=== PATIENT | female | born 1990 | race Caucasian/White ===

== ENCOUNTER 2018-03-18 15:16 | Emergency (ER) | payer SELFPAY ==
[~2018-03-18 15:16] MED LIST: DOCU1CAP39 PO; FERR325T PO; IBUP600 PO; OXYC1SOL5 PO; PRENCAP6 PO; SIME80 PO
[2018-03-18 15:22] VITALS: BP 116/61; PULSE 91; RESP 18; TEMP 97.7; O2SAT 98
[2018-03-18] MEDS ORDERED: PRENTAB7 PO (15:36)
--- NOTE | 2018-03-18 15:38 | PD ---
HPI Chief Complaint: Musculoskeletal Complaint Time Seen by Provider: 15:34 Travel History International Travel<30 days: No Contact w/Intl Traveler<30days: No Traveled to known affect area: No History of Present Illness HPI This young lady was in the garden, HOEING the garden when the patient felt a sudden sharp pain to the right inguinal region. Rates it 8 out of 10 worse with activity movement or pulling activity .m patient states that she is 13 weeks and has an BILLET SAWYER that she follows up with. Patient states that she does not have any associated factors such as fever, rash, chest pain, neck pain, back pain, flank pain, headache, vaginal bleeding, vaginal spotting, vaginal discharge, urinary frequency, urinary urgency, dysuria or actual abdominal pain. No nondrug allergies Patient denies any previous medical and surgical history with exception of a C- section PFSH Past Medical History Cancer: No Cardiovascular Problems: No Diabetes: No Diminished Hearing: No Endocrine: No Genitourinary: No Hepatitis: No Hiatal Hernia: No Immune Disorder: No Musculoskeletal: No Neurologic: No Psychiatric: No Reproductive: No Respiratory: No Immunizations Current: No Thyroid Disease: No ?: LMP: 12/11/2017 : 3 Para: 1 Miscarriage: 1 : 1 Dilation and Curettage (D&C): Yes Past Surgical History Abdominal Surgery: No AICD: No Cardiac Surgery: No Ear Surgery: No Endocrine Surgery: No Eye Surgery: No Genitourinary Surgery: No Gynecologic Surgery: Yes (, D&C, LEEP) Joint Replacement: No Oral Surgery: No Pacemaker: No Thoracic Surgery: No Other Surgery: Yes Social History Alcohol Use: No Tobacco Use: No Substance Use: No Allergies-Medications (Allergen,Severity, Reaction): Coded Allergies: *MDRO Multi-Drug Resistant Organism (Unverified Adverse Reaction, Unknown , 03/18/18) MRSA (surveillance culture) positive - 03/29/2015 MRSA PCR screen (nares) POSITIVE - 06/05/16 Reported Meds & Prescriptions Reported Meds & Active Scripts Active Reported Vitamins Tablet (Pnv No.95/Ferrous Fum/Folic AC) 28 Mg Iron-800 Mcg Tablet 1 Tab PO DAILY Review of Systems Except as stated in HPI: all other systems reviewed are Neg General / Constitutional: No: Fever Eyes: No: Visual changes HENT: No: Headaches Cardiovascular: No: Chest Pain or Discomfort Respiratory: No: Shortness of Breath Gastrointestinal: No: Abdominal Pain Genitourinary: No: Dysuria Musculoskeletal: Positive: Limited ROM (Right inguinal region), Pain Skin: No Rash Neurologic: No: Weakness Psychiatric: No: Depression Endocrine: No: Polydipsia Hematologic/Lymphatic: No: Easy Bruising Physical Exam Narrative GENERAL: SKIN: Warm and dry. HEAD: Atraumatic. Normocephalic. EYES: Pupils equal and round. No scleral icterus. No injection or drainage. ENT: No nasal bleeding or discharge. Mucous membranes pink and moist. NECK: Trachea midline. No JVD. CARDIOVASCULAR: Regular rate and rhythm. RESPIRATORY: No accessory muscle use. Clear to auscultation. Breath sounds equal bilaterally. GASTROINTESTINAL: Abdomen soft, non-tender, nondistended. Hepatic and splenic margins not palpable. AVELINO Torres at the bedside during examination MUSCULOSKELETAL: Extremities without clubbing, cyanosis, or edema. No obvious deformities. Patient had tenderness to palpation over the right femoral region. However the patient did not have any bulges during increased intra- abdominal pressure. NEUROLOGICAL: Awake and alert. No obvious cranial nerve deficits. Motor grossly within normal limits. Five out of 5 muscle strength in the arms and legs. Normal speech. PSYCHIATRIC: Appropriate mood and affect; insight and judgment normal. Data Data Last Documented VS Vital Signs Date Time Temp Pulse Resp B/P (MAP) Pulse Ox O2 Delivery O2 Flow Rate FiO2 03/18/18 15:22 97.7 91 18 116/61 (79) 98 Orders Orders Urinalysis - C+S If Indicated (03/18/18 15:38) Ed Discharge Order (03/18/18 16:07) Labs Laboratory Tests Test 03/18/18 15:40 Urine Color YELLOW Urine Turbidity CLEAR Urine pH 6.0 Urine Specific [place] 1.010 Urine Protein NEG mg/dL Urine Glucose (UA) NEG mg/dL Urine Ketones NEG mg/dL Urine Occult Blood NEG Urine Nitrite NEG Urine Bilirubin NEG Urine Urobilinogen 0.2 MG/DL Urine Leukocyte Esterase NEG Urine RBC 0-2 /hpf Urine WBC 0-2 /hpf Urine Squamous Epithelial Cells 0-5 /hpf Urine Bacteria NONE /hpf Microscopic Urinalysis Comment CULT NOT INDICATED MDM Medical Decision Making Medical Screen Exam Complete: Yes Emergency Medical Condition: Yes Medical Record Reviewed: Yes Differential Diagnosis Direct hernia versus indirect hernia versus inguinal hernia versus femoral hernia versus inguinal strain versus femoral strain Narrative Course Upon clinical evaluation the patient does not have any evidence of any inguinal or indirect or direct hernia. However she is tender over the femoral triangle region but without any bulging. Additionally the patient had a UA which was negative for any sterile pyuria, or UTI. Diagnosis Primary Impression: Right femoral strain without hernia Patient Instructions: General Instructions, Muscle Strain (ED) Disposition: 01 DISCHARGE HOME Condition: Stable Karan Shahid MD March 18, 2018 15:38
[2018-03-18 15:45] LABS: BILIRUBIN, URINE NEG (NEG); BLOOD, URINE NEG (NEG); GLUCOSE,URINE NEG (NEG); KETONE, URINE NEG (NEG); NITRITE,URINE NEG (NEG); URINE COLOR YELLOW (YELLW/STRAW); URINE LEUKOCYTE ESTERASE NEG (NEG)
[2018-03-18 15:54] LABS: RBC, URINE 0-2 /hpf (0-3); SQUAMOUS EPITHELIAL CELL URINE 0-5 /hpf (0-5); WBC, URINE 0-2 /hpf (0-5)
== END 2018-03-18 16:20 | disposition home or self-care (01) ==
LOC: PHED 15:16
DX: S39.011A Strain of muscle, fascia and tendon of abdomen, initial encounter (principal); Z3A.13 13 weeks gestation of pregnancy; Y93.H2 Activity, gardening and landscaping
CPT/HCPCS: 81001; 99283

== ENCOUNTER 2018-08-23 16:17 | Inpatient (IN) ==
--- NOTE | 2018-08-23 16:51 | ED ---
History of Present Illness Primary Care Physician: NOT REQUIRED Dr. Luong Scrap Iron Loader History of Present Illness: 27 y/o F, at 36wk3d presents with LOF x 2 hours. Clear fluid. Denies any cxns. Denies VB. +FM obhx: x 1 with 4th degree lac (2015) c/s x 1 (2016) SAB x 1 w/ D&C medhx: LEEP 2012 surghx: above meds: none all: none Review of Systems All other systems reviewed negative except as stated in HPI PMFSH - Travel History History of Recent Travel: No Medications and Allergies Allergies Allergy/AdvReac Type Severity Reaction Status Date / Time *MDRO Multi-Drug Resistant AdvReac Unknown Uncoded 03/18/18 15:35 Organism Home Medications Medication Instructions Recorded Confirmed Type No Known Home Medications 08/10/18 08/10/18 History Exam Narrative: GENERAL: Well-nourished, well-developed patient. SKIN: Warm and dry. HEAD: Normocephalic and atraumatic. EYES: No scleral icterus. No injection or drainage. ENT: No nasal drainage noted. Mucous membranes pink. Airway patent. NECK: Supple, trachea midline. No JVD. CARDIOVASCULAR: Regular rate and rhythm without murmurs, gallops, or rubs. RESPIRATORY: Breath sounds equal bilaterally. No accessory muscle use. ABDOMEN/GI: Abdomen soft, non-tender, bowel sounds present, no rebound, no guarding Gravid to 37 weeks size Fundal Height: 37 GENITOURINARY: External Genitalia: intact and normal in appearance FHT's: EFM baseline 30, +accels, no decels irregular cxns on toco EXTREMITIES: No cyanosis or edema. BACK: Nontender without obvious deformity. No CVA tenderness. NEUROLOGICAL: Awake and alert. Motor and sensory grossly within normal limits. Five out of 5 muscle strength in all muscle groups. Normal speech. Assessment and Plan - Diagnosis (1) 36 weeks gestation of Code(s): Z3A.36 - 36 weeks gestation of Status: Acute (2) Previous delivery affecting Code(s): O34.219 - Maternal care for unspecified type scar from previous delivery Status: Acute Plan: 27 y/o F, [id number], scheduled for repeat , presents with + SROM. - Amniosure positive, dilated at 3cm/80/-1 - labs reviewed, WNL - Ancef 2g pre-op - , Scrap Iron Loader aware and on way for repeat c/s - pre-op orders in Discharge Plan - Discharge Disposition Patient Disposition: 30 Still Patient - Physicians Team ED Provider: Meseret Wolfe Primary Care Provider: NOT REQUIRED,
[2018-08-23] MEDS ORDERED: ceFAZolin 2 GM Premix Inj 2 GM/50 ML PIGGYBACK IV.SIG PRN (17:01)
--- NOTE | 2018-08-23 17:05 | P.HPOB ---
History of Present Illness Primary Care Physician: NOT REQUIRED Dr. Luong Mold Changer History of Present Illness: 27 y/o F, at 36wk3d presents with LOF x 2 hours. Clear fluid. Denies any cxns. Denies VB. +FM obhx: x 1 with 4th degree lac (2015) c/s x 1 (2016) SAB x 1 w/ D&C medhx: LEEP 2012 surghx: above meds: none all: none Review of Systems All other systems reviewed negative except as stated in HPI PMFSH - Travel History History of Recent Travel: No Medications and Allergies Allergies Allergy/AdvReac Type Severity Reaction Status Date / Time *MDRO Multi-Drug Resistant AdvReac Unknown Uncoded 03/18/18 15:35 Organism Home Medications Medication Instructions Recorded Confirmed Type No Known Home Medications 08/10/18 08/10/18 History Exam Narrative: GENERAL: Well-nourished, well-developed patient. SKIN: Warm and dry. HEAD: Normocephalic and atraumatic. EYES: No scleral icterus. No injection or drainage. ENT: No nasal drainage noted. Mucous membranes pink. Airway patent. NECK: Supple, trachea midline. No JVD. CARDIOVASCULAR: Regular rate and rhythm without murmurs, gallops, or rubs. RESPIRATORY: Breath sounds equal bilaterally. No accessory muscle use. ABDOMEN/GI: Abdomen soft, non-tender, bowel sounds present, no rebound, no guarding Gravid to 37 weeks size Fundal Height: 37 GENITOURINARY: External Genitalia: intact and normal in appearance FHT's: EFM baseline 30, +accels, no decels irregular cxns on toco EXTREMITIES: No cyanosis or edema. BACK: Nontender without obvious deformity. No CVA tenderness. NEUROLOGICAL: Awake and alert. Motor and sensory grossly within normal limits. Five out of 5 muscle strength in all muscle groups. Normal speech. Assessment and Plan - Diagnosis (1) 36 weeks gestation of Code(s): Z3A.36 - 36 weeks gestation of Status: Acute (2) Previous delivery affecting Code(s): O34.219 - Maternal care for unspecified type scar from previous delivery Status: Acute Plan: 27 y/o F, [id number], scheduled for repeat , presents with + SROM. - Amniosure positive, dilated at 3cm/80/-1 - labs reviewed, WNL - Ancef 2g pre-op - , Mold Changer aware and on way for repeat c/s - pre-op orders in
[2018-08-23] MEDS ORDERED: Citric Acid/Sodium Citrate Liq 30 ML UDC PO SCH (17:15)
[2018-08-23] MEDS ORDERED: Ketorolac Inj 30 MG/ML (IVP) Vial IV.PUSH ONE (17:15)
[2018-08-23] MEDS ORDERED: Phenylephrine/NS 1000 MCG/10ML Syringe IV.PUSH ONE (17:15)
[2018-08-23 17:33] LABS: Baso % (Auto) 0.4 % (0.0-2.0); Eos # (Auto) 0.1 th/mm3 (0.0-0.4); Eos % (Auto) 0.5 % (0.0-4.0); Hematocrit 39.2 % (35.0-46.0); Hemoglobin 13.4 gm/dL (11.6-15.3); Lymph # (Auto) 1.7 th/mm3 (1.0-4.8); Lymph % (Auto) 15.3 % (9.0-44.0); Mean Corpuscular HGB Conc 34.1 % (32.0-36.0); Mean Corpuscular Hemoglobin 31.8 pg (27.0-34.0); Mean Corpuscular Volume 93.3 fL (80.0-100.0); Mean Platelet Volume 8.3 fL (7.0-11.0); Mono # (Auto) 0.5 th/mm3 (0.0-0.9); Mono % (Auto) 4.9 % (0.0-8.0); Neut # (Auto) 8.7 th/mm3 (1.8-7.7); Neut % (Auto) 78.9 % (16.0-70.0); Platelet Count 246 th/mm3 (150-450); Red Cell Distribution Width 13.4 % (11.6-17.2)
[2018-08-23] MEDS ORDERED: Morphine Sulfate PF Inj 5 MG/10 ML Ampul ONE (17:36)
[2018-08-23 17:40] LABS: Bilirubin,Urine Negative (Negative); Clarity,Urine Clear (Clear); Color,Urine Straw (Yellw/Straw); Glucose,Urine (UA) Negative (Negative); Leukocyte Esterase,Urine Negative (Negative); Nitrite,Urine Negative (Negative); Specific Gravity,Urine 1.003 (1.002-1.035); Squamous Epithelial Cell,Urine <1 /hpf (0-5)
[2018-08-23 17:46] LABS: Amphetamine Screen,Urine Neg (Neg); Barbiturate Screen,Urine Neg (Neg); Cannabinoid Screen,Urine Neg (Neg); Cocaine Screen,Urine Neg (Neg)
[2018-08-23 17:52] LABS: Opiate Screen,Urine Neg (Neg)
[2018-08-23] MEDS ORDERED: Senna/Docusate Sodium 8.6/50 MG Tablet PO PRN (19:16)
[2018-08-23] MEDS ORDERED: Oxytocin 30 Units/500ml Premix 30 UNITS/500 ML BAG IV.SIG ONE (19:16)
[2018-08-23] MEDS ORDERED: Simethicone 80 MG Chew Tablet PO PRN (19:16)
--- NOTE | 2018-08-23 19:18 | P.OBDELI ---
Weeks Gestation: 36 Patient Started Active Labor: No Medical Induction of Labor: No Artificial Rupture of Membrane: No Anesthesia: Spinal Episiotomy: none Presentation: Occiput anterior Nuchal Cord: None Delayed Cord Clamping (45 sec): Yes Estimated blood loss (mL): 500 Infant: Female ( 8/9, 7lb4oz) Additional Information: 27 y/o F, [id number], scheduled for repeat , presented with + SROM. Now s/p repeat c/s for PPROM.
[2018-08-23] MEDS ORDERED: Naloxone Inj 0.4 MG/ML Vial IV.PUSH PRN (21:05)
[2018-08-24] MEDS ORDERED: Oxytocin 30 Units/500ml Premix 30 UNITS/500 ML BAG IV.SIG PRN (00:16)
[2018-08-24] MEDS: ceFAZolin Inj 2,000 MG in Sodium Chlor 0.9% Inj 80 ML IV.SIG SCH ×2 (01:42→10:08)
[2018-08-24 05:49] LABS: Baso % (Auto) 0.1 % (0.0-2.0); Hematocrit 35.3 % (35.0-46.0); Hemoglobin 11.9 gm/dL (11.6-15.3); Lymph # (Auto) 1.5 th/mm3 (1.0-4.8); Lymph % (Auto) 8.1 % (9.0-44.0); Mean Corpuscular HGB Conc 33.7 % (32.0-36.0); Mean Corpuscular Hemoglobin 31.2 pg (27.0-34.0); Mean Corpuscular Volume 92.7 fL (80.0-100.0); Mean Platelet Volume 7.5 fL (7.0-11.0); Mono # (Auto) 0.8 th/mm3 (0.0-0.9); Mono % (Auto) 4.5 % (0.0-8.0); Neut # (Auto) 16.6 th/mm3 (1.8-7.7); Neut % (Auto) 87.3 % (16.0-70.0); Platelet Count 221 th/mm3 (150-450); Red Blood Count 3.81 mil/mm3 (4.00-5.30); Red Cell Distribution Width 13.3 % (11.6-17.2)
--- NOTE | 2018-08-24 10:36 | P.PNOB ---
Subjective Post op day: 1 Objective Vital Signs/I&O: Vital Signs 08/23/18 16:55 08/23/18 17:00 08/23/18 19:15 Temperature 98.1 F 97.6 F Pulse Rate 115 H 99 H Respiratory Rate 17 20 Blood Pressure 119/75 113/55 L 08/23/18 19:30 08/23/18 19:45 08/23/18 20:00 Temperature Pulse Rate 101 H 76 67 Respiratory Rate 19 18 Blood Pressure 105/56 L 111/57 L 109/55 L 08/23/18 20:14 08/23/18 20:15 08/23/18 20:25 Temperature 97.6 F Pulse Rate 69 Respiratory Rate 18 Blood Pressure 101/51 L 08/23/18 21:40 08/24/18 00:27 08/24/18 04:10 Temperature 96.8 F L 97.7 F 98.9 F Pulse Rate 70 80 69 Respiratory Rate 18 17 18 Blood Pressure 95/50 L 97/50 L 81/56 L 08/24/18 07:45 Temperature 98.5 F Pulse Rate 87 Respiratory Rate 20 Blood Pressure 110/56 L Intake & Output 08/23/18 08/24/18 08/24/18 18:59 06:59 18:59 Intake Total 100 / 100 100 / 100 Output Total 500 / 500 Balance 100 / 100 100 / 100 -500 / -500 Weight 63 kg Intake: IV 100 / 100 100 / 100 Ofirmev Inj 1,000 mg In 100 ml 100 / 100 @ 0 mls/hr IV.SIG .STK-MED ONE Rx#:[id number] Ancef Inj 2,000 MG In NS Inj 80 100 / 100 ML @ 200 mls/hr IV.SIG Q8H [facility] Rx#:[id number] Output: Urine 500 / 500 Other: Weight On Admission 63 kg Result Diagrams: 08/24/18 05:34 Objective Remarks: GENERAL: Well-nourished, well-developed patient. CARDIOVASCULAR: Regular rate and rhythm without murmurs, gallops, or rubs. RESPIRATORY: Breath sounds equal bilaterally. No accessory muscle use. ABDOMEN/GI: Abdomen soft, non-tender, bowel sounds present. Incision: DRESSING, Clean, dry and intact. Fundus: Firm, non-tender at umbilicus. GENITOURINARY: Light to moderate bleeding. EXTREMITIES: No cyanosis or edema, non-tender, without signs of DVT. 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 [facility] Stop: 08/27/18 17:14 Last Admin: 08/23/18 17:40 Dose: 30 ml Diphenhydramine HCl (Benadryl Inj) 25 mg IV.PUSH Q6H PRN PRN Reason: MILD TO MODERATE ITCHING Stop: 08/24/18 21:04 Diphenhydramine HCl (Benadryl) 50 mg PO Q6H PRN PRN Reason: MILD TO MODERATE ITCHING Stop: 08/24/18 21:04 Diphtheria/Pertussis/Tetanus Vacc (Boostrix Vaccine Inj) 0.5 ml IM .ONCE ONE Stop: 08/24/18 16:01 Cefazolin Sodium/Dextrose (Ancef 2 Gm Premix Inj) 2 gm in 50 mls @ 100 mls/hr IV.SIG SOW FARM BARN TECHNICIAN PRN PRN Reason: surgery Stop: 08/27/18 17:00 Lactated Ringer's (Lr 1000 Ml Inj) 1,000 mls @ 150 mls/hr IV.CONT .Q6H40M [facility] Last Admin: 08/24/18 10:09 Dose: Not Given Lactated Ringer's (Lr 1000 Ml Inj) 1,000 mls @ 100 mls/hr IV.CONT .Q10H [facility] Stop: 08/24/18 20:15 Last Admin: 08/24/18 10:22 Dose: Not Given Oxytocin (Pitocin 30 Units/Ns 500 Ml Premix) 30 units in 500 mls @ 100 mls/hr IV.SIG UNSCH PRN PRN Reason: Heavy bleeding Ibuprofen (Motrin) 800 mg PO Q8H PRN PRN Reason: cramping Last Admin: 08/24/18 08:12 Dose: 800 mg Ketorolac Tromethamine (Toradol Inj) 30 mg IM Q6H PRN PRN Reason: SEE LABEL COMMENTS Measles/Mumps/Rubella Vaccine Live (M-M-R Ii Vaccine Inj) 0.5 ml SQ .ONCE ONE Stop: 08/24/18 16:01 Miscellaneous Information ([facility] Nursing Information) 1 each OTHER UNSCH PRN PRN Reason: SEE LABEL COMMENTS Stop: 08/24/18 21:04 Miscellaneous Information (Misc Nursing Information) 1 each OTHER UNSCH PRN PRN Reason: SEE LABEL COMMENTS Stop: 08/24/18 21:04 Naloxone HCl (Narcan Inj) 0.4 mg IV.PUSH UNSCH PRN PRN Reason: SEE LABEL COMMENTS Stop: 08/24/18 21:04 Ondansetron HCl (Zofran Inj) 4 mg IV.PUSH Q6H PRN PRN Reason: NAUSEA OR VOMITING Last Admin: 08/23/18 19:43 Dose: 4 mg Oxycodone/Acetaminophen (Percocet 5/325 Mg) 1 tab PO Q4H PRN PRN Reason: PAIN SCALE 3 TO 5 Oxycodone/Acetaminophen (Percocet 5/325 Mg) 2 tab PO Q4H PRN PRN Reason: PAIN SCALE 6 TO 10 Senna/Docusate Sodium (Judie-Colace) 2 tab PO Q12H PRN PRN Reason: CONSTIPATION Simethicone (Mylicon Chew) 80 mg PO QID PRN PRN Reason: FLATULENCE Sodium Chloride (Ns Flush) 2 ml IV.FLUSH BID SIMON Last Admin: 08/24/18 10:09 Dose: 2 ml Sodium Chloride (Ns Flush) 2 ml IV.FLUSH PRN PRN PRN Reason: FLUSH AFTER USING IV ACCESS Assessment and Plan - Diagnosis (1) S/P repeat low transverse Code(s): Z98.891 - History of uterine scar from previous surgery Status: Acute Plan: ROUTINE POST OP CARE - Plan pod 1 PT DOING WELL PAIN WELL MANAGED WITH ORAL PAIN MEDICATION AMBULATING WITHOUT DIFFICULTY PT TO SHOWER TODAY BONDING WITH INFANT ROUTINE CARE Discharge Planning: DC HOME IN 1-2- DAYS
[2018-08-24] MEDS ORDERED: Diphtheria/Tetanus/Pertussis Vaccine Inj 0.5 ML Syringe IM ONE (16:00)
[2018-08-24] MEDS ORDERED: Measles/Mumps/Rubella Vaccine Inj 0.5 ML Vial SQ ONE (16:00)
--- NOTE | 2018-08-25 09:52 | P.OP ---
Addendum entered and electronically signed by Chikis Duke MD, R2 08/25/18 12:01: PLEASE NOTE PROCEDURE WAS PERFORMED ON 08/23/18, NOT DATE OTHERWISE MENTIONED IN NOTE. PLEASE ADVISE. Original Note: Date of procedure: 08/25/18 Procedure: repeat c/s Anesthesia: spinal Surgeon: Chikis Duke MD, R2 Dr. Luong, Deflash And Wash Operator Estimated blood loss (mL): 500 Pathology: none sent Operation and Findings: 27 y/o F, [id number], scheduled for repeat , presented with + SROM. Now s/p repeat c/s Taken to the operating room identified by name band and verbally and given a spinal anesthetic. She was prepped and draped in the usual sterile manner for a section. A time out was taken. The old incision was excised sharply and the Pfannenstiel incision was made and carried down to the fascia the fascia was nicked bilaterally and the fascia was taken off the rectus muscle by blunt and sharp dissection. The rectus muscles were spread bluntly and the peritoneum was entered under direct vision. The incision was extended with care to avoid the urinary bladder. A bladder blade was placed and a bladder flap was created in the usual fashion. The lower uterine segment was then incised sharply in a transverse manner and taken down in the midline until the uterine cavity was entered. The incision was extended with the surgeon's fingers. The vertex was grasped and with fundal pressure the vertex was delivered without difficulty hypopharynx and nasopharynx were suctioned and the remainder of the infant delivered without difficulty. The cord clamping was delayed 45 seconds and then the cord was clamped cut and the was handed over to the resuscitation team cord blood was obtained the placenta was removed manually and the uterus was curettaged twice with a wet lap. The uterus was delivered from the abdomen. The uterine incision was repaired with 0 Vicryl in a running fashion in 2 layers the second layer imbricating the first. The cul-de-sac and gutters were cleaned of blood and debris the uterus was delivered back into the abdomen. The rectus muscles were reapproximated with 0 Vicryl in a running the fascia was repaired with 0 Vicryl from lateral to midline bilaterally. The subcutaneous layer was repaired with a 3-0 Vicryl. The skin was repaired with a 4-0 Monocryl in a subcuticular manner. Patient tolerated the procedure well and went to recovery room in good condition.
--- NOTE | 2018-08-25 11:57 | P.PNOB ---
Subjective Post op day: 2 Objective Vital Signs/I&O: Vital Signs 08/24/18 12:00 08/24/18 15:40 08/24/18 20:00 Temperature 98.0 F 98.0 F 98.0 F Pulse Rate 85 94 H 67 Respiratory Rate 20 20 18 Blood Pressure 101/56 L 108/62 102/56 L 08/25/18 08:00 Temperature 97.5 F L Pulse Rate 71 Respiratory Rate 16 Blood Pressure 91/41 L Intake & Output 08/24/18 08/25/18 08/25/18 18:59 06:59 18:59 Output Total 500 / 500 Balance -500 / -500 Output: Urine 500 / 500 Result Diagrams: 08/24/18 05:34 Objective Remarks: GENERAL: Well-nourished, well-developed patient. CARDIOVASCULAR: Regular rate and rhythm without murmurs, gallops, or rubs. RESPIRATORY: Breath sounds equal bilaterally. No accessory muscle use. ABDOMEN/GI: Abdomen soft, non-tender, bowel sounds present. Incision: Clean, dry and intact, light bruising below incision Fundus: Firm, non-tender at umbilicus. GENITOURINARY: Light to moderate bleeding. EXTREMITIES: No cyanosis or edema, non-tender, without signs of DVT. 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 [facility] Stop: 08/27/18 17:14 Last Admin: 08/23/18 17:40 Dose: 30 ml Cefazolin Sodium/Dextrose (Ancef 2 Gm Premix Inj) 2 gm in 50 mls @ 100 mls/hr IV.SIG OUTSIDE SALES ACCOUNT EXECUTIVE PRN PRN Reason: surgery Stop: 08/27/18 17:00 Lactated Ringer's (Lr 1000 Ml Inj) 1,000 mls @ 150 mls/hr IV.CONT .Q6H40M [facility] Last Admin: 08/24/18 15:19 Dose: Not Given Oxytocin (Pitocin 30 Units/Ns 500 Ml Premix) 30 units in 500 mls @ 100 mls/hr IV.SIG UNSCH PRN PRN Reason: Heavy bleeding Ibuprofen (Motrin) 800 mg PO Q8H PRN PRN Reason: cramping Last Admin: 08/25/18 11:50 Dose: 800 mg Ketorolac Tromethamine (Toradol Inj) 30 mg IM Q6H PRN PRN Reason: SEE LABEL COMMENTS Ondansetron HCl (Zofran Inj) 4 mg IV.PUSH Q6H PRN PRN Reason: NAUSEA OR VOMITING Last Admin: 08/23/18 19:43 Dose: 4 mg Oxycodone/Acetaminophen (Percocet 5/325 Mg) 1 tab PO Q4H PRN PRN Reason: PAIN SCALE 3 TO 5 Last Admin: 08/25/18 09:11 Dose: 1 tab Oxycodone/Acetaminophen (Percocet 5/325 Mg) 2 tab PO Q4H PRN PRN Reason: PAIN SCALE 6 TO 10 Senna/Docusate Sodium (Judie-Colace) 2 tab PO Q12H PRN PRN Reason: CONSTIPATION Last Admin: 08/25/18 09:14 Dose: 2 tab Simethicone (Mylicon Chew) 80 mg PO QID PRN PRN Reason: FLATULENCE Sodium Chloride (Ns Flush) 2 ml IV.FLUSH BID SIMON Last Admin: 08/25/18 04:19 Dose: Not Given Sodium Chloride (Ns Flush) 2 ml IV.FLUSH PRN PRN PRN Reason: FLUSH AFTER USING IV ACCESS Assessment and Plan - Diagnosis (1) S/P repeat low transverse Code(s): Z98.891 - History of uterine scar from previous surgery Status: Acute Plan: ROUTINE POST OP CARE - Plan pod 2 PT DOING WELL PAIN WELL MANAGED WITH ORAL PAIN MEDICATION AMBULATING WITHOUT DIFFICULTY ROUTINE CARE Discharge Planning: DC HOME TODAY
--- NOTE | 2018-08-25 12:02 | P.DS ---
Date of admission: 08/23/18 16:52 Primary care physician: NOT REQUIRED Attending physician on discharge: Alok Luong Anticipated date of discharge: 08/25/18 Brief History from admission: 27 y/o F, at 36wk3d presents with LOF x 2 hours. Clear fluid. Denies any cxns. Denies VB. +FM obhx: x 1 with 4th degree lac (2015) c/s x 1 (2016) SAB x 1 w/ D&C medhx: LEEP 2012 surghx: above meds: none all: none DS: Diagnosis - Discharge Diagnosis (1) S/P repeat low transverse Status: Acute DS: Summary Hospital Course: PREVIOUS C SECTION pprom AT 36 3/7 WEEKS REPEAT C SECTION - Time Spent with Patient Total time spent providing and/or coordinating discharge services: Less than 30 minutes Exam Vital signs: Vital Signs 08/24/18 15:40 08/24/18 20:00 08/25/18 08:00 Temperature 98.0 F 98.0 F 97.5 F L Pulse Rate 94 H 67 71 Respiratory Rate 20 18 16 Blood Pressure 108/62 102/56 L 91/41 L Intake & Output 08/24/18 08/25/18 08/25/18 18:59 06:59 18:59 Output Total 500 / 500 Balance -500 / -500 Output: Urine 500 / 500 Narrative: SEE POST OP NOTE Results Procedures completed during hospitalization: REPEAT C SECTION Discharge Plan - Discharge Disposition Patient Disposition: 01 Discharge Home - Discharge Condition Condition: Good - Discharge Order Discharge Orders: Discharge Order (Routine); Ordered 08/25/18 Ordered By: Latanya Dent SIGN BUILDER Clear for Discharge (Routine); Ordered 08/25/18 Ordered By: Latanya Dent - Discharge Details Anticipated Discharge Date: 08/25/18 - Physicians Team Primary Care Provider: NOT REQUIRED, Attending Provider: Alok Luong
== END 2018-08-25 18:50 | disposition home or self-care (01) ==
LOC: HOBED 16:17 → H2E 16:52 → H1EA 20:32
PROVIDERS: ADMIT Obstetrics & Gynecology; ATTEND Obstetrics & Gynecology